=== PATIENT | female | born 1935 | race Caucasian/White ===

== ENCOUNTER 2017-01-05 10:41 | Inpatient (IN) ==
[2017-01-05] MEDS ORDERED: ONDANSETRON 4 MG/2 ML VIAL IV STA ×2 (11:16→12:36)
[2017-01-05] MEDS ORDERED: HYDROmorphone 2 MG/1 ML VIAL IV STA ×3 (11:16→12:29)
[2017-01-05] MEDS ORDERED: HYDROmorphone 2 MG/1 ML VIAL ONE ×2 (11:19→12:37)
[2017-01-05] MEDS ORDERED: ONDANSETRON 4 MG/2 ML VIAL ONE ×2 (11:19→12:39)
--- NOTE | 2017-01-05 11:21 | Emergency Department Note ---
Arrival - Arrival Chief Complaint: Back Stated Complaint: back pain ED Nursing Triage Note: C/O HAVING LOWER BACK PAIN SINCE BUT HAS GOTTEN WORSE SINCE THR., STATES WAS PLACED ON PAIN MEDICATION BY DR. FERNANDEZ., DENIES HAVING PAIN UPON URINATION., DENIES HAVING INCEASE TEMP., STATES THE PAIN RADIATES TO THE HIPS, STATES WHEN SHE TRIES TO STAND UP THE PAIN RADIATES DOWN HER LEG., STATES THE PAIN IS SEVERE Mode of Arrival: Wheelchair Time Seen by Provider: 01/05/17 11:09 - History of Present Illness HPI Narrative: Patient 81-year-old white female presents emergency room with severe back pain. Patient states she has had 3 kyphoplasty's this year already. She denies any specific trauma that she can recall and tells me she had MRI 2 weeks ago that showed no acute fracture but this pain is developed since that MRI. She denies any radicular type symptoms and has not lost her bowel or bladder function. She is scheduled see Dr. Fernandez in 3 days. He has not had any fever, chills and she denies any urinary symptoms. Patient plans also complaining of some substernal chest pain that her daughter was concerned about. She denies any neck shoulder arm discomfort with this and does not have any shortness of breath or diaphoresis. Allergies/Adverse Reactions: Allergies Allergy/AdvReac Type Severity Reaction Status Date / Time tetanus toxoid, adsorbed Allergy Severe Swelling Verified 01/05/17 10:48 of Lip/Tongue/Throat Home Medications: Home Medications Medication Instructions Recorded Confirmed Type Apixaban [Eliquis] 5 mg PO BID 08/08/15 01/05/17 History Metoprolol Succinate Xl [Toprol Xl] 50 mg PO DAILY 08/08/15 01/05/17 History Diltiazem Tab [Cardizem Tab] 30 mg PO TID 01/05/17 01/05/17 History Hydrocodone/Acetaminophen 1 each PO Q6H PRN 01/05/17 01/05/17 History [Hydrocodon-Acetaminoph 7.5-325] fentaNYL [Fentanyl 25 mcg/hr Patch] 1 patch TRANSDERM Q3DAY 01/05/17 01/05/17 History Review of System - Review of System Constitutional: Absent: chills, fever Eyes: Absent: pain, vision change Head/Ears/Nose/Throat: Absent: earache, nasal drainage Respiratory: Absent: cough, respiratory distress, wheezing Cardiovascular: Present: chest pain. Absent: palpitations, orthopnea, edema Gastrointestinal: Absent: abdominal pain, nausea, vomiting, diarrhea Genitourinary female: Absent: dysuria, frequency Musculoskeletal: Present: as per HPI, back pain. Absent: arthralgia, leg pain Skin: Absent: rash, lesions Neurological: Absent: headache, weakness, numbness, paresthesias Psychiatric: Absent: anxiety, depression Hematological/Lymphatic: Absent: easy bleeding, easy bruising Allergic/Immunologic: Absent: facial swelling, urticaria Medical,Surgical,& Family Hx - Medical History Cardio: History of: Cardiac Dysrhythmia (3rd degree heart block), Hypertension, [place], Pacemaker, Cardiovascular Problems (has pacemaker) Neurology: History of: Migraine No history of: Seizures HEENT: History of: Eye Problem (cataracts removed) Rheumatology: History of;: Rheumatoid Arthritis Gastrointestinal: History of: Diverticulitis/ Diverticulosis, GERD, GI Problems (dysphagia) Musculoskeletal: History of: Back/Neck Problems (injection 12-09-14), Osteoporosis (back problems), Musculoskeletal Problems (4 compression problems) Hematology: No history of: Blood Transfusion Reaction Other: No history of: Anesthesia Reactions - Surgical History Cardiac Surgeries: Sugical HX of: Cardiac Catheterization (albation) HEENT Surgeries: Surgical HX of: Eye Surgery (cataracts) Abdominal Surgeries: Surgical HX of: Appendectomy, Colonoscopy, EGD Reproductive Surgeries: Surgical HX of;: Tubal Ligation (1967) Patient denies;: Genitourinary Surgery, Hysterectomy Orthopedic Surgeries: Patient denies;: Orthopedic Surgery - Family History Family History: Reports;: Family Cancer (father-gastric) - Social History Smoking Status: Never smoker Frequency of Alcohol Use: None Type of Drug Use: None Exam Vital Signs: Vital Signs Temperature 98.2 F 01/05/17 10:43 Pulse Rate 72 01/05/17 10:43 Respiratory Rate 16 01/05/17 10:43 Blood Pressure 140/76 01/05/17 10:43 O2 Sat by Pulse Oximetry 96 01/05/17 10:43 - General General appearance: alert, in no apparent distress - Head Head exam: Present: normocephalic - Eye Eye exam: Present: PERRL, EOMI - ENT ENT exam: Present: normal exam - Neck Neck exam: Present: normal inspection, full ROM - Chest Chest inspection: Present: normal inspection - Respiratory Respiratory exam: Present: normal lung sounds bilaterally. Absent: rales, respiratory distress - Cardiovascular Cardiovascular exam: Present: regular rate, normal rhythm, normal heart sounds. Absent: murmur - Abdominal Exam Abdominal exam: Present: soft, normal bowel sounds. Absent: tenderness - Extremities Exam Extremities exam: Present: normal inspection - Back Exam Back exam: Present: tenderness, muscle spasm. Absent: normal inspection - Neurological Exam Neurological exam: Present: alert, oriented X3, CN II-XII intact. Absent: motor sensory deficit - Psychiatric Psychiatric exam: Present: normal affect - Skin Skin exam: Present: warm, dry
[2017-01-05] MEDS ORDERED: ASPIRIN 325 MG TABLET PO STA (11:35)
[2017-01-05 11:44] LABS: Basophils % 0.7 % (0.0-0.8); Eosinophils # 0.2 10*3/uL (0.0-0.87); Eosinophils % 3.4 % (0.00-10.9); Hematocrit 40.9 VOL% (35.7-47.0); Hemoglobin 13.4 GM/DL (12.0-16.0); Immature Granulocytes % 0.5 %; Immature Granulocytes Absolute 0.02 #; Lymphocytes # 1.5 10*3/uL (1.4-4.0); Lymphocytes % 33.2 % (21.3-54.2); Mean Corpuscular HGB Conc 32.8 GM/DL (32-36); Mean Corpuscular Hemoglobin 26 PG (27-34); Mean Corpuscular Volume 80.7 FL (87-102); Monocytes # 0.4 10*3/uL (0.11-0.8); Monocytes % 8.4 % (1.7-12.7); Neutrophils # 2.4 10*3/uL (1.4-7.4); Neutrophils % 53.8 % (38.7-73.9); Platelet Count 124 T/CUMM (130-400); Red Blood Count 5.07 MC/CUMM (3.8-5.5); Red Cell Distribution Width 14.7 % (9.3-17.3); White Blood Count 4.4 T/CUMM (4-12)
[2017-01-05] MEDS ORDERED: ASPIRIN 325 MG TABLET ONE (11:45)
[2017-01-05 12:24] LABS: Albumin 3.5 G/DL (3.4-5.0); Bilirubin,Total 0.4 MG/DL (0.2-1.0); Osmolality,Calculated 278.4 MOS/KG (273-304); Potassium 4.3 MMOL/L (3.5-5.1); Total Protein 6.5 G/DL (6.4-8.3)
--- NOTE | 2017-01-05 12:34 | EKG Report ---
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
--- NOTE | 2017-01-05 12:39 | XRay Report ---
XR lumbar spine AP/LAT Indication: Back pain. Lumbar spine 2 views: Comparison 10/19/2016. In addition to the previously treated compression fractures of L2 and L3, kyphoplasty has now been performed at T11, T12 and L4. Patient is markedly osteoporotic. No acute compression fractures are seen at the untreated levels. Alignment is normal. Calcified atheromatous disease is present. Impression: Multiple levels of treated compression fractures with kyphoplasty. Marked osteoporosis. No acute compression fractures demonstrated. PROCEDURE INTERPRETED AT [facility] DEPARTMENT OF RADIOLOGY Final Report Signed by: Eric Israel M.D.
--- NOTE | 2017-01-05 12:40 | XRay Report ---
XR chest 1V portable Indication: Chest pain. Chest one view: Comparison 09/24/2016. Pacemaker device, mild cardiomegaly, tortuous thoracic aorta and senile scarring of the lungs appear stable. No new infiltrates are shown. Impression: No acute cardiopulmonary disease. Chronic changes as described. PROCEDURE INTERPRETED AT [facility] DEPARTMENT OF RADIOLOGY Final Report Signed by: Eric Israel M.D.
--- NOTE | 2017-01-05 14:26 | Hospitalist History & Physical ---
Assessment and Plan - Time spent with patient Time spent with patient: Greater than 30 minutes (1) Intractable lower back pain Status: Acute Assessment and plan: Ms. 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 Patient will be admitted to the floor with family present to monitor her mental status on narcotics. Will insert a Osman until her pain is controlled for ease of movement. We will start her on Percocets, tramadol, and Dilaudid as needed. Will consult Dr. South from pain management to assist in her pain control until Dr. Maher is back on Saturday. Will restart her home medicines for her heart but will hold Eliquis just in case Dr. Maher wants to do a kyphoplasty next week. Will give patient Lovenox in the meantime. We will continue to monitor the patient's breathing and blood pressure and mental status while on these narcotics while trying to control her pain. We will also try to get her records of her previous MRI and low back x-rays to compare. Dr. Burgess will see and examined patient and further recommendations to follow. Current Visit: Yes (2) Compression fracture Status: Acute Current Visit: Yes (3) Irregular heart rhythm Status: Acute Current Visit: Yes (4) Chronic anticoagulation Status: Acute Current Visit: Yes (5) Pacemaker Status: Acute Current Visit: Yes (6) Radiculopathy of lumbosacral region Status: Acute Current Visit: Yes History of Present Illness Chief complaint: Back pain History of present illness: Ms. 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 Patient states she has had back pain for the last 10 years but has not been that bad until this past . She states she has had multiple compression fractures and Dr. Maher has done 4 kyphoplastys since . Patient states she is scheduled to see him again on Saturday but she states since the pain has become so bad that she cannot stand it anymore. Patient rates her pain at 10/10 upon admission to the ED. After some Dilaudid it decreased to a 6/10. Patient states she did have an MRI approximately 2-3 weeks ago that did not show any new fractures. Patient feels like she is being cut in half when she moves. She states the pain radiates to her hips equally but does not radiate into the legs. She has normal sensation in her legs and feet. She denies any bowel or bladder problems, headaches, chest pain, shortness of breath, abdominal pain, or lower extremity edema. Patient's vital signs are stable and her labs are normal. She takes [place] and fentanyl patch for home given by Dr. Maher. Patient states the [place] is not doing anything for the pain today. 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 Marques. Patient's case was discussed with Dr. Khan the ED physician and Dr. Burgess the admitting hospitalist, and it was agreed patient would be admitted for further evaluation and treatment. Home Medications Medication Instructions Recorded Confirmed Type Apixaban [Eliquis] 5 mg PO BID 08/08/15 01/05/17 History Metoprolol Succinate Xl [Toprol Xl] 50 mg PO DAILY 08/08/15 01/05/17 History Diltiazem Tab [Cardizem Tab] 30 mg PO TID 01/05/17 01/05/17 History Hydrocodone/Acetaminophen 1 each PO Q6H PRN 01/05/17 01/05/17 History [Hydrocodon-Acetaminoph 7.5-325] fentaNYL [Fentanyl 25 mcg/hr Patch] 1 patch TRANSDERM Q3DAY 01/05/17 01/05/17 History Allergies Allergy/AdvReac Type Severity Reaction Status Date / Time tetanus toxoid, adsorbed Allergy Severe Swelling Verified 01/05/17 10:48 of Lip/Tongue/Throat Medical,Surgical,& Family Hx - Medical History Cardio: History of: Cardiac Dysrhythmia (3rd degree heart block), Hypertension, [place], Pacemaker, Cardiovascular Problems (has pacemaker) Neurology: History of: Migraine No history of: Seizures HEENT: History of: Eye Problem (cataracts removed) Rheumatology: History of;: Rheumatoid Arthritis Gastrointestinal: History of: Diverticulitis/ Diverticulosis, GERD, GI Problems (dysphagia) Musculoskeletal: History of: Back/Neck Problems (injection 5--15), Osteoporosis (back problems), Musculoskeletal Problems (4 compression problems) Hematology: No history of: Blood Transfusion Reaction Other: No history of: Anesthesia Reactions - Surgical History Cardiac Surgeries: Sugical HX of: Cardiac Catheterization (albation) HEENT Surgeries: Surgical HX of: Eye Surgery (cataracts) Abdominal Surgeries: Surgical HX of: Appendectomy, Colonoscopy, EGD Reproductive Surgeries: Surgical HX of;: Tubal Ligation (1967) Patient denies;: Genitourinary Surgery, Hysterectomy Orthopedic Surgeries: Patient denies;: Orthopedic Surgery - Family History Family History: Reports;: Family Cancer (father-gastric) - Social History Smoking Status: Never smoker Frequency of Alcohol Use: None Type of Drug Use: None Marital Status: Lives With:: Alone Functional capacity: independent ambulation Review of systems: A complete 10 system review of systems was obtained and pertinent positives and negatives per HPI Exam - Constitutional Vitals: Period Temp Pulse Resp BP Sys/Rich Pulse Ox Last 24 Hr 98.2 F-98.2 F 72-72 16-16 140-140/76-76 96 Exam: Constitutional System: No distress. No tremulousness. Head: Normocephalic, atraumatic. Ears, Nose and Throat System: No evidence of Otitis or Mastoiditis. No epistaxis or discharge Eyes System: Pupils equal, round, and reactive. Extraocular muscles intact. Neck: Supple, without adenopathy, No jugular venous distention. No thyromegaly, neck mass, or prior surgery apparent. Respiratory System: Chest clear to auscultation. Cardiovascular System: Heart with regular rate and rhythm. No murmur. GI System: Abdomen soft, nontender. Normo active bowel sounds present. Musculoskeletal System: limbs with no pedal edema. Full distal pulses. Tenderness in low back paraspinal region down around to bilateral hips Neurological System: No discernable sensory deficit. No aphasia Psychiatric System: Conversation is rational Results - Labs CBC & BMP: 01/05/17 11:35 01/05/17 11:35 Lab Results: I have reviewed the past 24 hour labs - Impressions Atrial pacer and ventricular pacer - Diagnostic Findings Procedure: Chest x-ray: report reviewed by me (No acute process)
[2017-01-05] MEDS ORDERED: diphenhydrAMINE CAP 25 MG CAPSULE PO PRN (14:44)
[2017-01-05] MEDS ORDERED: KETOROLAC 30 MG/1 ML VIAL IV ONE (14:44)
[2017-01-05] MEDS ORDERED: PROMETHAZINE 25 MG/1 ML VIAL IM PRN (14:44)
[2017-01-05] MEDS ORDERED: oxyCODONE/ACETAMINOPHEN 5-325 MG TABLET PO PRN ×2 (14:44)
[2017-01-05] MEDS ORDERED: DOCUSATE SODIUM 100 MG CAPSULE PO PRN (14:44)
[2017-01-05] MEDS ORDERED: guaiFENesin/DM ER 600-30 MG TABLET PO PRN (14:44)
[2017-01-05] MEDS ORDERED: ENOXAPARIN 40 MG/0.4 ML SYRINGE SUBCUT SCH (15:00)
[2017-01-05] MEDS ORDERED: HYDROmorphone 2 MG/1 ML VIAL IV SCH ×2 (15:00)
[2017-01-05] MEDS: KETOROLAC 30 MG/1 ML VIAL IV SCH ×2 (16:17→21:16)
[2017-01-05] MEDS: SODIUM CHLORIDE 0.9% 1,000 ML IV SCH (16:24)
[2017-01-05] MEDS: DILTIAZEM 30 MG TABLET PO SCH ×2 (16:43→21:13)
[2017-01-05] MEDS: METOPROLOL SUCCINATE XL 50 MG TABLET PO SCH (16:44)
[2017-01-05] MEDS: PANTOPRAZOLE 40 MG TABLET PO SCH (16:44)
[2017-01-05] MEDS: ENOXAPARIN 60 MG/0.6 ML SYRINGE SUBCUT SCH (18:59)
[2017-01-05] MEDS: ONDANSETRON 4 MG/2 ML VIAL IV PRN (21:42)
[2017-01-06] MEDS: SODIUM CHLORIDE 0.9% 1,000 ML IV SCH ×2 (02:53→11:19)
[2017-01-06] MEDS: KETOROLAC 30 MG/1 ML VIAL IV SCH ×4 (02:55→21:40)
[2017-01-06] MEDS: ONDANSETRON 4 MG/2 ML VIAL IV PRN ×4 (03:04→21:36)
[2017-01-06] MEDS: ENOXAPARIN 60 MG/0.6 ML SYRINGE SUBCUT SCH ×2 (06:25→18:26)
[2017-01-06] MEDS: HYDROmorphone 2 MG/1 ML VIAL IV PRN ×4 (06:28→21:48)
--- NOTE | 2017-01-06 07:59 | EKG Report ---
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
[2017-01-06] MEDS: DILTIAZEM 30 MG TABLET PO SCH ×3 (09:16→21:34)
[2017-01-06] MEDS: METOPROLOL SUCCINATE XL 50 MG TABLET PO SCH (09:16)
[2017-01-06] MEDS: PANTOPRAZOLE 40 MG TABLET PO SCH (09:17)
--- NOTE | 2017-01-06 11:31 | Hospitalist Progress Note ---
Assessment and Plan - Time spent with patient Time spent with patient: Greater than 30 minutes (1) Chronic low back pain Status: Acute Assessment and plan: Improving with pain medications. Defer to Dr. Lawson. Current Visit: Yes (2) Chronic anticoagulation Status: Acute Assessment and plan: Switch the patient from an oral medications to therapeutic Lovenox. This can be discontinued if any procedures are required. Current Visit: Yes Hospitalist: Subjective Interval history: Stable, no complaints. She states the pain medications are assisting. CT from yesterday has been reviewed no acute findings. Exam - Constitutional Vitals: Period Temp Pulse Resp BP Sys/Rich Pulse Ox Last 24 Hr 97.4 F-98.2 F 60-88 18-18 128-167/60-82 94-100 General appearance: no acute distress - Head Head exam: Present: normocephalic, atraumatic - Eye Eye exam: Present: EOMI Pupils: Present: GOLDEN - ENT ENT exam: Present: normal exam - Neck Neck exam: Present: normal inspection - Respiratory Respiratory exam: Present: clear to auscultation bilaterally. Absent: rhonchi, wheezes - Cardiovascular Cardiovascular exam: Present: regular rate and rhythm. Absent: gallop, rubs, systolic murmur - GI/Abdominal GI/Abdominal exam: Present: normal bowel sounds, soft. Absent: distended, firm , guarding, tenderness, rebound - Extremities Exam Extremities exam: Present: normal inspection. Absent: calf tenderness, edema Results - Labs CBC & BMP: 01/05/17 11:35 01/05/17 11:35 Lab Results: I have reviewed the past 24 hour labs
[2017-01-06] MEDS ORDERED: hydrALAZINE 20 MG/1 ML VIAL IV PRN (11:42)
[2017-01-07] MEDS: SODIUM CHLORIDE 0.9% 1,000 ML IV SCH ×3 (02:34→18:45)
[2017-01-07] MEDS: ONDANSETRON 4 MG/2 ML VIAL IV PRN ×4 (04:05→20:20)
[2017-01-07] MEDS: KETOROLAC 30 MG/1 ML VIAL IV SCH ×4 (04:08→20:20)
[2017-01-07] MEDS: HYDROmorphone 2 MG/1 ML VIAL IV PRN ×3 (04:16→23:20)
[2017-01-07] MEDS: ACETAMINOPHEN 325 MG TABLET PO PRN (06:26)
[2017-01-07] MEDS: ENOXAPARIN 60 MG/0.6 ML SYRINGE SUBCUT SCH ×2 (06:27→18:44)
[2017-01-07] MEDS: DILTIAZEM 30 MG TABLET PO SCH ×3 (09:07→20:20)
[2017-01-07] MEDS: PANTOPRAZOLE 40 MG TABLET PO SCH (09:07)
[2017-01-07] MEDS: METOPROLOL SUCCINATE XL 50 MG TABLET PO SCH (09:08)
--- NOTE | 2017-01-07 12:52 | Pain Management Consult Note ---
Assessment and Plan (1) Compression fracture Problem details: Lumbar compression fracture L1 Status: Acute Assessment and plan: The patient reports 4-5 day history of severe back pain consistent with a lumbar compression fracture. She has had previous fractures at multiple levels and is well aware of the type of pain that goes along with these fractures. The pain is such that it hurts to really move much at all. In regards to her low and mid back she has had T11-T12 L2-L3 and L4 repaired. The pain is at approximately the level of L1. I reviewed her x-rays very carefully and it is apparent to me that there is further superior endplate collapse of L1 when compared to previous x-rays. Will get CT scan to confirm this. And if the CT scan confirms this then will proceed with kyphoplasty probably Saturday of this week. If in fact there is a new fracture then kyphoplasty is medically necessary because the patient cannot care for herself and was independent before this fracture. Current Visit: Yes History of Present Illness Chief complaint: Back pain History of present illness: Ms. Gill is a 81 year old female with severe osteoporosis who is sustained multiple previous lumbar and thoracic compression fractures. She states "I have another fracture". She states that starting 5 days ago she developed severe back pain to the point she can no longer get out of bed or perform any basic activities of daily living. She denies any specific injury but the pain is much worse with movement and is a sharp stabbing aching pain. Home Medications Medication Instructions Recorded Confirmed Type Apixaban [Eliquis] 5 mg PO BID 08/08/15 01/05/17 History Metoprolol Succinate Xl [Toprol Xl] 50 mg PO DAILY 08/08/15 01/05/17 History Diltiazem Tab [Cardizem Tab] 30 mg PO TID 01/05/17 01/05/17 History Hydrocodone/Acetaminophen 1 each PO Q6H PRN 01/05/17 01/05/17 History [Hydrocodon-Acetaminoph 7.5-325] fentaNYL [Fentanyl 25 mcg/hr Patch] 1 patch TRANSDERM Q3DAY 01/05/17 01/05/17 History Allergies Allergy/AdvReac Type Severity Reaction Status Date / Time tetanus toxoid, adsorbed Allergy Severe Swelling Verified 01/05/17 10:48 of Lip/Tongue/Throat Medical,Surgical,& Family Hx - Medical History Cardio: History of: Cardiac Dysrhythmia (3rd degree heart block), Hypertension, [place], Pacemaker, Cardiovascular Problems (has pacemaker) Neurology: History of: Migraine No history of: Seizures HEENT: History of: Eye Problem (cataracts removed) Rheumatology: History of;: Rheumatoid Arthritis Gastrointestinal: History of: Diverticulitis/ Diverticulosis, GERD, GI Problems (dysphagia) Musculoskeletal: History of: Back/Neck Problems (injection 5-21-15), Osteoporosis (back problems), Musculoskeletal Problems (4 compression problems) Hematology: No history of: Blood Transfusion Reaction Other: No history of: Anesthesia Reactions - Surgical History Cardiac Surgeries: Sugical HX of: Cardiac Catheterization (albation) HEENT Surgeries: Surgical HX of: Eye Surgery (cataracts) Abdominal Surgeries: Surgical HX of: Appendectomy, Colonoscopy, EGD Patient denies: Abdominal Surgery Reproductive Surgeries: Surgical HX of;: Tubal Ligation (1968) Patient denies;: Genitourinary Surgery, Hysterectomy Orthopedic Surgeries: Patient denies;: Orthopedic Surgery - Family History Family History: Reports;: Family Cancer (father-gastric) - Social History Smoking Status: Never smoker Frequency of Alcohol Use: None Type of Drug Use: None - Constitutional Constitutional: Present: fatigue, weakness, weight loss - Musculoskeletal Musculoskeletal: Present: arthralgias, back pain, joint swelling, muscle weakness - Neurological Neurological: Present: paresthesias Exam - Constitutional Vitals: Period Temp Pulse Resp BP Sys/Rich Pulse Ox Last 24 Hr 97.2 F-98.3 F 60-60 18-20 132-151/56-81 95-100 General appearance: normal weight - Eye Eye exam: Present: EOMI - ENT Ear exam: Present: intact - Respiratory Respiratory exam: Present: clear to auscultation bilaterally - Cardiovascular Cardiovascular exam: Present: RRR - GI/Abdominal GI/Abdominal exam: Present: normal bowel sounds - Back Exam Back exam: Present: vertebral tenderness - Neurological Exam Neurological exam: Present: alert, oriented X3, abnormal gait, CN II-XII intact - Skin Skin exam: Present: dry Results - Labs CBC & BMP: 01/05/17 11:35 01/05/17 11:35
--- NOTE | 2017-01-07 13:21 | Hospitalist Progress Note ---
Assessment and Plan - Time spent with patient Time spent with patient: Greater than 30 minutes (1) Chronic low back pain Status: Acute Assessment and plan: Improving with pain medications. Defer to Dr. Maher. Current Visit: Yes (2) Chronic anticoagulation Status: Acute Assessment and plan: Switch the patient from an oral medications to therapeutic Lovenox. This can be discontinued if any procedures are required 12 hours prior to planned surgery. Current Visit: Yes Hospitalist: Subjective Interval history: No complaints or overnight events. Reports no constipation. Exam - Constitutional Vitals: Period Temp Pulse Resp BP Sys/Rich Pulse Ox Last 24 Hr 97.2 F-98.3 F 60-60 18-20 132-151/56-81 95-100 General appearance: no acute distress - Head Head exam: Present: normocephalic, atraumatic - Eye Eye exam: Present: EOMI Pupils: Present: GOLDEN - ENT ENT exam: Present: normal exam - Neck Neck exam: Present: normal inspection - Respiratory Respiratory exam: Present: clear to auscultation bilaterally. Absent: rhonchi, wheezes - Cardiovascular Cardiovascular exam: Present: regular rate and rhythm. Absent: gallop, rubs, systolic murmur - GI/Abdominal GI/Abdominal exam: Present: normal bowel sounds, soft. Absent: distended, firm , guarding, tenderness, rebound - Extremities Exam Extremities exam: Present: normal inspection. Absent: calf tenderness, edema Results - Labs CBC & BMP: 01/05/17 11:35 01/05/17 11:35 Lab Results: I have reviewed the past 24 hour labs
[2017-01-07] MEDS ORDERED: HYDROmorphone 2 MG/1 ML VIAL IV ONE (14:15)
--- NOTE | 2017-01-07 16:02 | CT Report ---
CT lumbar spine wo con Indication: Back pain. Previous vertebroplasty at multiple levels. CT LUMBAR SPINE WITHOUT CONTRAST DLP: 614 mGy*cm. One or more of the following dose reduction techniques was used: Automated exposure control, adjustment of the mA and/or kV according the patient size, or use of iterative reconstruction techniques. Comparison: 11/13/2016 Technique: Axial noncontrast CT images of the lumbar spine were obtained. Coronal and sagittal reconstructions were provided. Findings: Since 2 months ago, kyphoplasty has been performed at T12 securing the compression fracture. Additional kyphoplasty at L2, L3 and L4 appear stable. Slight flattening and concave changes of the superior endplate of L1 indicate a new compression fracture since previous examination. Less than 20% loss of vertebral body height noted. No retropulsed fracture fragments. Posterior elements are maintained. L5 vertebral body height is maintained as is S1. Overall disc heights are maintained throughout the lumbar spine. Patient is markedly osteoporotic. Extensive calcified atheromatous disease of the aorta is present. Scattered granulomata are distorted throughout the spleen. Tiny bilateral pleural effusions noted. Impression: Since 2 months ago, new superior endplate compression fracture of L1. Treated T12 compression fracture now present as well. Old treated fractures at L2, L3 and L4 as described. PROCEDURE INTERPRETED AT [facility] DEPARTMENT OF RADIOLOGY Final Report Signed by: Eric Israel M.D.
[2017-01-08] MEDS: KETOROLAC 30 MG/1 ML VIAL IV SCH ×4 (02:57→20:27)
[2017-01-08] MEDS: ONDANSETRON 4 MG/2 ML VIAL IV PRN ×3 (03:00→17:04)
[2017-01-08] MEDS: HYDROmorphone 2 MG/1 ML VIAL IV PRN ×3 (05:57→18:13)
[2017-01-08] MEDS: ENOXAPARIN 60 MG/0.6 ML SYRINGE SUBCUT SCH (05:57)
[2017-01-08] MEDS: METOPROLOL SUCCINATE XL 50 MG TABLET PO SCH (09:17)
[2017-01-08] MEDS: DILTIAZEM 30 MG TABLET PO SCH ×3 (09:17→20:30)
[2017-01-08] MEDS: PANTOPRAZOLE 40 MG TABLET PO SCH (09:17)
--- NOTE | 2017-01-08 13:34 | Hospitalist Progress Note ---
Assessment and Plan - Time spent with patient Time spent with patient: Greater than 30 minutes (1) Chronic low back pain Status: Acute Assessment and plan: L1 fracture. Improving with pain medications. Defer to Dr. Maher. Current Visit: Yes (2) Chronic anticoagulation Status: Acute Assessment and plan: Oral medications held. Patient is currently on Lovenox which the last dose will have to be at least 12 hours prior to any surgery. Current Visit: Yes Hospitalist: Subjective Interval history: No complaints. She reports improved pain. CT performed reveals L1 acute fracture. Exam - Constitutional Vitals: Period Temp Pulse Resp BP Sys/Rich Pulse Ox Last 24 Hr 97.1 F-98.4 F 55-60 18-20 139-188/69-81 94-97 General appearance: no acute distress - Head Head exam: Present: normocephalic, atraumatic - Eye Eye exam: Present: EOMI Pupils: Present: GOLDEN - ENT ENT exam: Present: normal exam - Neck Neck exam: Present: normal inspection - Respiratory Respiratory exam: Present: clear to auscultation bilaterally. Absent: rhonchi, wheezes - Cardiovascular Cardiovascular exam: Present: regular rate and rhythm. Absent: gallop, rubs, systolic murmur - GI/Abdominal GI/Abdominal exam: Present: normal bowel sounds, soft. Absent: distended, firm , guarding, tenderness, rebound - Extremities Exam Extremities exam: Present: normal inspection. Absent: calf tenderness, edema Results - Labs CBC & BMP: 01/05/17 11:35 01/05/17 11:35 Lab Results: I have reviewed the past 24 hour labs
--- NOTE | 2017-01-08 14:49 | Pain Management Progress Note ---
Assessment and Plan (1) Compression fracture Problem details: Lumbar compression fracture L1 Status: Acute Assessment and plan: 01/08/2017. The patient remains with continued back pain with any significant movement. She is unable to get out of bed due to the severity of her pain. CT scan confirms new L1 fracture. Due to the severity of her pain she is now candidate for kyphoplasty of this affected level. I am hopeful that she will be ready to go home either late tomorrow or early the following day. y 01/07/2017. The patient reports 4-5 day history of severe back pain consistent with a lumbar compression fracture. She has had previous fractures at multiple levels and is well aware of the type of pain that goes along with these fractures. The pain is such that it hurts to really move much at all. In regards to her low and mid back she has had T11-T12 L2-L3 and L4 repaired. The pain is at approximately the level of L1. I reviewed her x-rays very carefully and it is apparent to me that there is further superior endplate collapse of L1 when compared to previous x-rays. Will get CT scan to confirm this. And if the CT scan confirms this then will proceed with kyphoplasty probably Saturday of this week. If in fact there is a new fracture then kyphoplasty is medically necessary because the patient cannot care for herself and was independent before this fracture. y Current Visit: Yes Pain - Subjective Interval history: Continued back pain with any movement Exam - Constitutional Vitals: Period Temp Pulse Resp BP Sys/Rich Pulse Ox Last 24 Hr 97.1 F-98.4 F 55-60 18-20 139-188/69-81 94-97 General appearance: normal weight, mild distress - Back Exam Back exam: Present: vertebral tenderness - Neurological Exam Neurological exam: Present: alert, oriented X3 Results - Labs CBC & BMP: 01/05/17 11:35 01/05/17 11:35
[2017-01-08] MEDS: ACETAMINOPHEN 325 MG TABLET PO PRN (14:58)
[2017-01-09] MEDS: ONDANSETRON 4 MG/2 ML VIAL IV PRN ×2 (00:32→20:56)
[2017-01-09] MEDS: HYDROmorphone 2 MG/1 ML VIAL IV PRN ×5 (00:36→20:52)
[2017-01-09] MEDS: KETOROLAC 30 MG/1 ML VIAL IV SCH ×4 (03:24→22:35)
--- NOTE | 2017-01-09 06:21 | EKG Report ---
Stationary ECG Study [facility] Test Date: 01/08/2017 9:29:08 PM Pat Name: NASRIN LOZANO Department: Room: 440 Gender: F Ingot Weigher: SHABNAM : 1935 Requested by: Karel Dawson Order Number: [id number] Reading MD: ROMAN ORDONEZ Intervals [place] Rate: 60 P: 252 MO: 302 QRS: -57 QRSD: 194 T: 101 QT: 513 QTc: 513 Interpretive Statements ELECTRONIC ATRIAL PACEMAKER ELECTRONIC VENTRICULAR PACEMAKER Electronically Signed On 01-09-17 17:11:30 CDT by ROMAN ORDONEZ [email or web address]
--- NOTE | 2017-01-09 12:15 | Hospitalist Progress Note ---
Assessment and Plan - Time spent with patient Time spent with patient: Greater than 30 minutes (1) Chronic low back pain Status: Acute Assessment and plan: L1 fracture. Improving with pain medications. Defer to Dr. Maher. Current Visit: Yes (2) Chronic anticoagulation Status: Acute Assessment and plan: Has history of atrial fibrillation and is on anticoagulation because of that. Oral medications held. Lovenox held for procedure. Current Visit: Yes Hospitalist: Subjective Interval history: Reports pain is well controlled. Would like some relief with the kyphoplasty. Exam - Constitutional Vitals: Period Temp Pulse Resp BP Sys/Rich Pulse Ox Last 24 Hr 97.5 F-988 F 59-62 16-20 119-175/57-81 94-96 General appearance: no acute distress - Head Head exam: Present: normocephalic, atraumatic - Eye Eye exam: Present: EOMI Pupils: Present: GOLDEN - ENT ENT exam: Present: normal exam - Neck Neck exam: Present: normal inspection - Respiratory Respiratory exam: Present: clear to auscultation bilaterally. Absent: rhonchi, wheezes - Cardiovascular Cardiovascular exam: Present: regular rate and rhythm. Absent: gallop, rubs, systolic murmur - GI/Abdominal GI/Abdominal exam: Present: normal bowel sounds, soft. Absent: distended, firm , guarding, tenderness, rebound - Extremities Exam Extremities exam: Present: normal inspection. Absent: calf tenderness, edema Results - Labs CBC & BMP: 01/05/17 11:35 01/05/17 11:35 Lab Results: I have reviewed the past 24 hour labs
[2017-01-09] MEDS ORDERED: TISSUE ADHESIVE 1 EACH APPLICATOR TOP ONE (14:21)
[2017-01-09] MEDS ORDERED: ROPIVACAINE 0.5% 30 ML VIAL ONE (14:21)
[2017-01-09] MEDS ORDERED: PROPOFOL 200 MG/20 ML VIAL IV ONE (14:28)
[2017-01-09] MEDS ORDERED: PROMETHAZINE 25 MG/1 ML VIAL ONE (14:28)
[2017-01-09] MEDS ORDERED: LABETALOL 100 MG/20 ML VIAL IV ONE (14:28)
[2017-01-09] MEDS: DILTIAZEM 30 MG TABLET PO SCH ×3 (15:00→21:00)
--- NOTE | 2017-01-09 15:11 | Operative Note ---
Date of procedure: 01/09/17 Pre-op diagnosis: Lumbar compression fracture Post-op diagnosis: same Procedure: Preoperative diagnoses: #1 lumbar compression fracture Postoperative diagnosis: Same Procedure: Kyphoplasty L1 Anesthesia: MAC Complications: None Findings: The patient tolerated the procedure well, there is excellent religion of vertebral height, the vertebral body held 10 cc of contrast and bone cement. Estimated blood loss: 10 cc History of present illness: The patient has had multiple lumbar and thoracic compression fractures and has responded extremely well to kyphoplasty's in the past. She is incapacitated with her pain at this point and is a candidate for kyphoplasty of the acute fracture of L1. She has severe osteoporosis. Procedure note: The risk benefits and indications of the procedure were explained to the patient including the option to do nothing at all, she understood these and wished to proceed. The patient was placed in the prone position on the fluoroscopy table, her her back was prepped with alcohol and ChloraPrep allowed air dry and sterilely draped. Skin was raised below the pedicles of L1 bilaterally. Stab wound was made with 11 blade scalpel and through the stab wounds were advanced the bone trochars. These were advanced under careful fluoroscopic control until they struck the posterior aspect of the pedicles of L1 bilaterally using oblique approach. Then using a bone mouth are driven down to the pedicles and into the posterior aspect of the elbow one vertebral body under careful fluoroscopic control. AP and lateral views were checked under fluoroscopy. I then advanced the hand twist drill into the body of L1 and then removed it. I then placed the balloon bone tamps into the body of L1, and then injected contrasted fluid under fluoroscopy into the balloons. Each held approximately 5-6 cc of contrast and fluid. These then were removed after the bone cement had been mixed and prepped by an tmd teacher assistant. I then injected the bone cement after adequate set up time into the vertebral body under continuous lateral fluoroscopy. The vertebral body held a total of 10-1/ 2 cc of contrast and bone cement. There is excellent filling and religion of the vertebral body height. Patient tolerated the procedure well, the bone trochars removed intact and the wounds were sterilely dressed after skin glue was placed on the wounds. The patient was taken to recovery in satisfactory condition. Anesthesia: MAC Surgeon / Physician: Rafael Maher Estimated blood loss: minimal Specimens: none sent Condition: stable Disposition: PACU Results - Labs CBC & BMP: 01/05/17 11:35 01/05/17 11:35 Discharge Plan - Discharge Data Condition at Discharge: Stable - Discharge Medications No Action Apixaban [Eliquis] 5 mg PO BID Metoprolol Succinate Xl [Toprol Xl] 50 mg PO DAILY fentaNYL [Fentanyl 25 mcg/hr Patch] 1 patch TRANSDERM Q3DAY Hydrocodone/Acetaminophen [Hydrocodon-Acetaminoph 7.5-325] 1 each PO Q6H PRN PRN Reason: Pain Diltiazem Tab [Cardizem Tab] 30 mg PO TID - Follow Up or Referral - Forms/Instructions
[2017-01-09] MEDS ORDERED: HYDROmorphone 2 MG/1 ML VIAL ONE (15:26)
[2017-01-09] MEDS ORDERED: ONDANSETRON 4 MG/2 ML VIAL ONE (15:26)
--- NOTE | 2017-01-09 15:27 | Anesthesia Post-Op ---
Anesthesia Post OP - Post Ansesthetic Evaluation Patient seen in post op: Yes Resp: within normal limits CV: within normal limits Mental: within normal limits Temp: within normal limits [id number]: within normal limits Nausea and Vomiting: within normal limits Pain: within normal limits
[2017-01-09] MEDS ORDERED: MIDAZOLAM 2 MG/2 ML VIAL ONE (15:28)
[2017-01-09] MEDS ORDERED: fentaNYL 100 MCG/2 ML VIAL ONE (15:28)
--- NOTE | 2017-01-09 15:40 | XRay Report ---
XR spine 1V Indication: Kyphoplasty. Fluoroscopy spine: 3 captured fluoroscopic images labeled as "L1 kypho" are provided. Fluoroscopy time 1 minute 45 seconds. They show positioning of 2 transpedicular injection needles with final image demonstrating methyl methacrylate injection of the vertebral body. Multiple levels of previously treated spine are present as well. Impression: Presumed satisfactory imaging for kyphoplasty. PROCEDURE INTERPRETED AT [facility] DEPARTMENT OF RADIOLOGY Final Report Signed by: Eric Israel M.D.
[2017-01-09] MEDS ORDERED: ONDANSETRON 4 MG/2 ML VIAL IV PRN (15:41)
[2017-01-09] MEDS ORDERED: KETOROLAC 15 MG/1 ML VIAL ONE (15:51)
[2017-01-09] MEDS: LACTATED RINGERS 1,000 ML IV SCH (20:02)
[2017-01-10] MEDS: METOPROLOL SUCCINATE XL 50 MG TABLET PO SCH ×2 (00:38→09:56)
[2017-01-10] MEDS: PANTOPRAZOLE 40 MG TABLET PO SCH ×2 (00:38→09:55)
[2017-01-10] MEDS: ENOXAPARIN 60 MG/0.6 ML SYRINGE SUBCUT SCH ×2 (00:39→07:06)
[2017-01-10] MEDS: LACTATED RINGERS 1,000 ML IV SCH ×4 (00:39→15:29)
[2017-01-10] MEDS: KETOROLAC 30 MG/1 ML VIAL IV SCH ×2 (04:28→09:52)
[2017-01-10] MEDS: ONDANSETRON 4 MG/2 ML VIAL IV PRN ×2 (04:32→11:47)
[2017-01-10] MEDS: DILTIAZEM 30 MG TABLET PO SCH ×2 (09:56→15:35)
[2017-01-10 11:22] VITALS: BP 132/61
--- NOTE | 2017-01-10 12:31 | Pain Management Progress Note ---
Assessment and Plan (1) Compression fracture Problem details: Lumbar compression fracture L1 Status: Acute Assessment and plan: 01/09/2017. Overall she is significantly improved. She is up moving and much more active. The procedure went extremely well yesterday. She should be ready for discharge whenever deemed appropriate by her admitting doctors. She has a follow-up appointment with us. n 01/08/2017. The patient remains with continued back pain with any significant movement. She is unable to get out of bed due to the severity of her pain. CT scan confirms new L1 fracture. Due to the severity of her pain she is now candidate for kyphoplasty of this affected level. I am hopeful that she will be ready to go home either late tomorrow or early the following day. y 01/07/2017. The patient reports 4-5 day history of severe back pain consistent with a lumbar compression fracture. She has had previous fractures at multiple levels and is well aware of the type of pain that goes along with these fractures. The pain is such that it hurts to really move much at all. In regards to her low and mid back she has had T11-T12 L2-L3 and L4 repaired. The pain is at approximately the level of L1. I reviewed her x-rays very carefully and it is apparent to me that there is further superior endplate collapse of L1 when compared to previous x-rays. Will get CT scan to confirm this. And if the CT scan confirms this then will proceed with kyphoplasty probably Saturday of this week. If in fact there is a new fracture then kyphoplasty is medically necessary because the patient cannot care for herself and was independent before this fracture. y Current Visit: Yes Pain - Subjective Interval history: Back pain much better Exam - Constitutional Vitals: Period Temp Pulse Resp BP Sys/Rich Pulse Ox Last 24 Hr 97.1 F-99.7 F 63-88 16-20 105-168/45-95 86-100 Results - Labs CBC & BMP: 01/05/17 11:35 01/05/17 11:35
--- NOTE | 2017-01-10 14:09 | Discharge Summary ---
Hospital Course - Hospital Course Hospital Course: Ms. Gill was admitted for evaluation of severe back pain. While in the ER she had a lumbar x-ray which revealed multiple fractures that have been cemented and a potential fracture in L1. She seen by pain management Dr. Fernandez who ordered a CT scan of the lumbar region which confirmed an L1 endplate fracture. During this time her Eliquis was held and she was bridged on Lovenox therapy. Once an adequate amount of time past, she had a kyphoplasty performed by Dr. Fernandez which was successful and resulted in adequate relief of pain. By discharge she had met maximum benefit of hospitalization I spent 38 minutes coordinating this discharge. - Time spent with patient Time with patient DS: Greater than 30 minutes Diagnosis - Discharge Diagnosis (1) Chronic low back pain Status: Acute (2) Chronic anticoagulation Status: Acute Discharge Plan - Discharge Data Disposition: Disch To Home/Self Care Condition at Discharge: Stable Discharge Diet: advance to your usual diet Activity: resume usual activities as tolerated Hygiene: no restrictions Weight Bearing at Discharge: full weight bearing - Discharge Medications Continue Apixaban [Eliquis] 5 mg PO BID Metoprolol Succinate Xl [Toprol Xl] 50 mg PO DAILY fentaNYL [Fentanyl 25 mcg/hr Patch] 1 patch TRANSDERM Q3DAY Hydrocodone/Acetaminophen [Hydrocodon-Acetaminoph 7.5-325] 1 each PO Q6H PRN PRN Reason: Pain Diltiazem Tab [Cardizem Tab] 30 mg PO TID - Follow Up or Referral - Forms/Instructions Exam - Constitutional Vitals: Period Temp Pulse Resp BP Sys/Rich Pulse Ox Last 24 Hr 97.1 F-99.7 F 63-88 16-20 105-168/45-95 86-100 General appearance: normal weight, no acute distress - Head Head exam: Present: normal inspection, normocephalic, atraumatic - Eye Eye exam: Present: EOMI Pupils: Present: GOLDEN - ENT ENT exam: Present: normal exam - Neck Neck exam: Present: normal inspection - Respiratory Respiratory exam: Present: clear to auscultation bilaterally. Absent: accessory muscle use, prolonged expiratory phase, wheezes - Cardiovascular Cardiovascular exam: Present: regular rate and rhythm. Absent: bradycardia, irregular rhythm, systolic murmur - GI/Abdominal GI/Abdominal exam: Present: normal bowel sounds. Absent: ascites, hypoactive bowel sounds, tenderness - Extremities Exam Extremities exam: Present: normal inspection DS: Provider Date of admission: 01/05/17 14:33 Primary care physician: Manuelito Lee DO Attending physician on admission: Mariella Shrestha MD Consults: 01/05/17 17:36 Consult to Dietitian [CONS] Routine Reason for Dietitian: Other Consult Comment: recent weight loss 01/05/17 19:23 Consult to Physician [CONS] Routine Comment: intractable back pain, pt of Dr. Fernandez Consulting Provider: Rafael Fernandez Consulting Provider Notified: Yes When should Consulting Provider be notified: Now Consult to Specialist Group: Pain Management When should Consulting Provider be notified: Now Person Notified: DR NAVA Date Notified: 01/06/17 Time Notified: 08:09 Consult Notification Comment: ABEL AT OFFICE NOTIFIED ON December AT 910AM-FOR DR FERNANDEZ Discharging clinician: Mariella Shrestha MD Expected date of discharge: 01/10/17
[2017-01-10] MEDS: HYDROmorphone 2 MG/1 ML VIAL IV PRN (15:31)
== END 2017-01-10 15:45 | disposition home or self-care (01) | DRG 517 ==
LOC: N.ED 10:41 → N.EDINP 14:33 → N.4E 15:02
PROVIDERS: ADMIT Internal Medicine; ATTEND Internal Medicine

== ENCOUNTER 2019-03-08 20:28 | Inpatient (IN) ==
[2019-03-08 21:19] LABS: Basophils % 0.4 % (0.0-0.8); Eosinophils # 0.2 10*3/uL (0.0-0.87); Eosinophils % 3.3 % (0.00-10.9); Hematocrit 36.6 VOL% (35.7-47.0); Hemoglobin 11.1 GM/DL (12.0-16.0); Immature Granulocytes % 0.6 %; Immature Granulocytes Absolute 0.04 #; Lymphocytes # 2.9 10*3/uL (1.4-4.0); Mean Corpuscular HGB Conc 30.3 GM/DL (32-36); Mean Corpuscular Volume 86.3 FL (87-102); Mean Platelet Volume 11.5 FL (9.6-12.0); Monocytes % 8.9 % (1.7-12.7); Neutrophils % 46.8 % (38.7-73.9); Platelet Count 141 T/CUMM (130-400); Red Blood Count 4.24 MC/CUMM (3.8-5.5); Red Cell Distribution Width 15.7 % (9.3-17.3); White Blood Count 7.2 T/CUMM (4-12)
[2019-03-08 21:33] LABS: Alanine Aminotransferase 19 U/L (13-56); Albumin 3.6 G/DL (3.4-5.0); Alkaline Phosphatase 52 U/L (45-117); Aspartate Amino Transferase 22 U/L (0-37); Bilirubin,Total < 0.39 MG/DL (0.2-1.0); Blood Urea Nitrogen 32 MG/DL (7-18); Calcium 8.7 MG/DL (8.5-10.1); Glucose 105 MG/DL (74-106); Osmolality,Calculated 285.4 MOS/KG (273-304); Total Protein 6.8 G/DL (6.4-8.3)
[2019-03-08 21:33] LABS: PT Patient Result 10.6 SECS; Partial Thromboplastin Time 26.6 SECS (0-40)
[2019-03-08] MEDS ORDERED: SODIUM CHLORIDE 0.9% 1,000 ML IV STA (21:41)
[2019-03-08] MEDS ORDERED: ACETAMINOPHEN 325 MG TABLET PO PRN (22:37)
[2019-03-08] MEDS ORDERED: ONDANSETRON 4 MG/2 ML VIAL IV PRN (22:37)
[2019-03-09 00:02] LABS: Hemoglobin 9.7 GM/DL (12.0-16.0)
[2019-03-09] MEDS: SODIUM CHLORIDE 0.9% 1,000 ML IV SCH ×3 (04:00→17:11)
[2019-03-09 04:15] LABS: Hematocrit 28.2 VOL% (35.7-47.0); Hemoglobin 8.8 GM/DL (12.0-16.0)
[2019-03-09] MEDS ORDERED: SODIUM CHLORIDE 0.9% 1,000 ML IV PRN (07:15)
[2019-03-09 07:49] LABS: Hematocrit 26.8 VOL% (35.7-47.0); Hemoglobin 8.3 GM/DL (12.0-16.0)
[2019-03-09] MEDS: PANTOPRAZOLE 40 MG VIAL IV SCH (08:23)
[2019-03-09] MEDS: DOCUSATE SODIUM 100 MG CAPSULE PO SCH ×2 (08:23→20:05)
[2019-03-09] MEDS ORDERED: traMADol 50 MG TABLET PO PRN (10:22)
[2019-03-09] MEDS: oxyCODONE/ACETAMINOPHEN 5-325 MG TABLET PO PRN (10:40)
[2019-03-09] MEDS: MULTIVITAMIN (CENTRUM) TABLET PO SCH ×2 (10:41→10:43)
[2019-03-09] MEDS: DILTIAZEM 30 MG TABLET PO SCH ×2 (15:39→20:05)
[2019-03-09 19:43] LABS: Hematocrit 29.1 VOL% (35.7-47.0); Hemoglobin 9.1 GM/DL (12.0-16.0)
[2019-03-10] MEDS: SODIUM CHLORIDE 0.9% 1,000 ML IV SCH ×4 (01:23→11:02)
[2019-03-10 02:00] LABS: Hematocrit 28.5 VOL% (35.7-47.0); Hemoglobin 8.9 GM/DL (12.0-16.0)
[2019-03-10] MEDS: DILTIAZEM 30 MG TABLET PO SCH (08:49)
[2019-03-10] MEDS: PANTOPRAZOLE 40 MG VIAL IV SCH (08:49)
[2019-03-10] MEDS: DOCUSATE SODIUM 100 MG CAPSULE PO SCH (08:49)
[2019-03-10] MEDS: MULTIVITAMIN (CENTRUM) TABLET PO SCH (08:49)
[2019-03-10] MEDS ORDERED: CALCIUM (CARBONATE) 500 MG TABLET PO SCH (09:00)
[2019-03-10] MEDS ORDERED: METOPROLOL SUCCINATE XL 100 MG TABLET PO SCH (09:00)
[2019-03-10] MEDS: oxyCODONE/ACETAMINOPHEN 5-325 MG TABLET PO PRN (09:50)
[2019-03-10 15:45] VITALS: BP 144/71
== END 2019-03-10 16:35 | disposition home or self-care (01) | DRG 813 ==
LOC: N.ED 20:28 → N.EDINP 20:28 → N.4E 23:31
PROVIDERS: ADMIT Family Medicine; ATTEND Family Medicine

== ENCOUNTER 2019-12-14 06:28 | Inpatient (IN) ==
[2019-12-14] MEDS ORDERED: ONDANSETRON 4 MG/2 ML VIAL IV PRN (06:50)
[2019-12-14] MEDS ORDERED: SODIUM CHLORIDE 0.9% 1,000 ML IV STA (06:50)
[2019-12-14] MEDS ORDERED: PANTOPRAZOLE 40 MG VIAL IV STA (06:50)
[2019-12-14 07:11] LABS: Basophils % 0.2 % (0.0-0.8); Eosinophils # 0.1 10*3/uL (0.0-0.87); Eosinophils % 1.4 % (0.00-10.9); Hematocrit 35.8 VOL% (35.7-47.0); Hemoglobin 10.9 GM/DL (12.0-16.0); Immature Granulocytes % 0.6 %; Immature Granulocytes Absolute 0.05 #; Lymphocytes # 1.5 10*3/uL (1.4-4.0); Lymphocytes % 17.6 % (21.3-54.2); Mean Corpuscular HGB Conc 30.4 GM/DL (32-36); Mean Corpuscular Volume 83.4 FL (87-102); Mean Platelet Volume 10.8 FL (9.6-12.0); Monocytes % 7.1 % (1.7-12.7); Neutrophils % 73.1 % (38.7-73.9); Platelet Count 166 T/CUMM (130-400); Red Blood Count 4.29 MC/CUMM (3.8-5.5); Red Cell Distribution Width 16.4 % (9.3-17.3); White Blood Count 8.3 T/CUMM (4-12)
[2019-12-14 07:24] LABS: PT Patient Result 10.9 SECS (9.8-11.9); Partial Thromboplastin Time 28.8 SECS (23.9-33.8)
[2019-12-14 07:50] LABS: Albumin 3.5 G/DL (3.4-5.0); Bilirubin,Total 0.5 MG/DL (0.2-1.0); Calcium 9.4 MG/DL (8.5-10.1); Osmolality,Calculated 273.1 MOS/KG (273-304); Total Protein 7.5 G/DL (6.4-8.3)
[2019-12-14] MEDS ORDERED: SODIUM CHLORIDE 0.9% 1,000 ML IV SCH (10:00)
[2019-12-14] MEDS ORDERED: ACETAMINOPHEN 325 MG TABLET PO PRN (10:00)
[2019-12-14 10:27] LABS: Hematocrit 31.6 VOL% (35.7-47.0); Hemoglobin 9.7 GM/DL (12.0-16.0)
[2019-12-14] MEDS: SODIUM CHLORIDE 0.9% 1,000 ML IV SCH ×2 (11:20→23:37)
[2019-12-14] MEDS ORDERED: traMADol 50 MG TABLET PO PRN (11:25)
[2019-12-14 11:41] LABS: Hematocrit 28.9 VOL% (35.7-47.0); Hemoglobin 8.8 GM/DL (12.0-16.0)
[2019-12-14] MEDS: PANTOPRAZOLE 40 MG TABLET PO SCH (13:41)
[2019-12-14] MEDS: DOCUSATE SODIUM 100 MG CAPSULE PO SCH (13:41)
[2019-12-14] MEDS: DILTIAZEM 30 MG TABLET PO SCH (16:24)
[2019-12-14 16:37] LABS: Hematocrit 28.4 VOL% (35.7-47.0); Hemoglobin 8.7 GM/DL (12.0-16.0)
[2019-12-14] MEDS: ONDANSETRON 4 MG/2 ML VIAL IV PRN (16:54)
[2019-12-15] MEDS: DOCUSATE SODIUM 100 MG CAPSULE PO SCH ×2 (00:15→11:01)
[2019-12-15] MEDS: DILTIAZEM 30 MG TABLET PO SCH ×2 (00:15→11:01)
[2019-12-15 05:25] LABS: Basophils % 0.3 % (0.0-0.8); Eosinophils # 0.2 10*3/uL (0.0-0.87); Hematocrit 28.4 VOL% (35.7-47.0); Hemoglobin 8.5 GM/DL (12.0-16.0); Immature Granulocytes % 0.6 %; Immature Granulocytes Absolute 0.04 #; Lymphocytes # 1.8 10*3/uL (1.4-4.0); Lymphocytes % 24.7 % (21.3-54.2); Mean Corpuscular HGB Conc 29.9 GM/DL (32-36); Mean Platelet Volume 11.8 FL (9.6-12.0); Monocytes % 8.2 % (1.7-12.7); Neutrophils % 63.2 % (38.7-73.9); Platelet Count 146 T/CUMM (130-400); Red Blood Count 3.38 MC/CUMM (3.8-5.5); Red Cell Distribution Width 16.3 % (9.3-17.3); White Blood Count 7.2 T/CUMM (4-12)
[2019-12-15 05:51] LABS: Calcium 8.6 MG/DL (8.5-10.1); Osmolality,Calculated 275.7 MOS/KG (273-304)
[2019-12-15] MEDS: ONDANSETRON 4 MG/2 ML VIAL IV PRN (08:09)
[2019-12-15] MEDS ORDERED: METOPROLOL SUCCINATE XL 100 MG TABLET PO SCH (09:00)
[2019-12-15] MEDS: PANTOPRAZOLE 40 MG TABLET PO SCH (10:42)
[2019-12-15 11:57] VITALS: BP 123/53
== END 2019-12-15 14:12 | disposition home or self-care (01) | DRG 378 ==
LOC: N.ED 06:28 → N.EDINP 08:00 → N.3E 08:44
PROVIDERS: ADMIT Family Medicine; ATTEND Family Medicine

== ENCOUNTER 2019-12-21 11:15 | Observation (INO) ==
[2019-12-21] MEDS ORDERED: SODIUM CHLORIDE 0.9% 1,000 ML IV STA ×2 (11:21→12:55)
[2019-12-21 11:58] LABS: Basophils % 0.5 % (0.0-0.8); Eosinophils # 0.1 10*3/uL (0.0-0.87); Eosinophils % 1.4 % (0.00-10.9); Hematocrit 29.9 VOL% (35.7-47.0); Immature Granulocytes % 0.5 %; Immature Granulocytes Absolute 0.03 #; Lymphocytes # 1.8 10*3/uL (1.4-4.0); Lymphocytes % 28.8 % (21.3-54.2); Mean Corpuscular HGB Conc 30.1 GM/DL (32-36); Mean Corpuscular Volume 82.8 FL (87-102); Mean Platelet Volume 11.1 FL (9.6-12.0); Monocytes % 7.5 % (1.7-12.7); Neutrophils % 61.3 % (38.7-73.9); Platelet Count 225 T/CUMM (130-400); Red Blood Count 3.61 MC/CUMM (3.8-5.5); Red Cell Distribution Width 16.1 % (9.3-17.3); White Blood Count 6.3 T/CUMM (4-12)
[2019-12-21 12:09] LABS: PT Patient Result 11.1 SECS (9.8-11.9); Partial Thromboplastin Time 29.8 SECS (23.9-33.8)
[2019-12-21 12:20] LABS: Albumin 3.4 G/DL (3.4-5.0); Bilirubin,Total 0.4 MG/DL (0.2-1.0); Calcium 8.6 MG/DL (8.5-10.1); Osmolality,Calculated 275.8 MOS/KG (273-304); Total Protein 6.7 G/DL (6.4-8.3)
[2019-12-21] MEDS ORDERED: ACETAMINOPHEN 325 MG TABLET PO PRN (12:56)
[2019-12-21] MEDS: SODIUM CHLORIDE 0.9% 1,000 ML IV SCH ×2 (14:37→22:40)
[2019-12-21 16:30] LABS: Apearance,Urine CLEAR (Clear); Bilirubin,Urine Negative (Negative); Blood, Urine Negative (Negative); Glucose,Urine (UA) Negative (Negative); Ketones,Urine Negative (Negative); Nitrite,Urine Negative (Negative); Protein,Urine Negative; Squamous Epithelial Cell,Urine Occasional /HPF (0-10); Urine Color Yellow (Yellow); Urine Specific Gravity 1.039 (1.001-1.035); Urine Urobilinogen < 2.0 EU/DL (0.2-1.0); WBC,Urine 1 /HPF (0-6)
[2019-12-21] MEDS ORDERED: oxyCODONE/ACETAMINOPHEN 5-325 MG TABLET PO PRN (18:37)
[2019-12-21] MEDS: DOCUSATE SODIUM 100 MG CAPSULE PO SCH (20:58)
[2019-12-21] MEDS: oxyCODONE/ACETAMINOPHEN 5-325 MG TABLET PO PRN (20:58)
[2019-12-22] MEDS: ONDANSETRON 4 MG/2 ML VIAL IV PRN (04:57)
[2019-12-22] MEDS: oxyCODONE/ACETAMINOPHEN 5-325 MG TABLET PO PRN ×3 (04:57→20:55)
[2019-12-22] MEDS: SODIUM CHLORIDE 0.9% 1,000 ML IV SCH ×3 (07:15→23:45)
[2019-12-22] MEDS: LIDOCAINE 5% PATCH TRANSDERM SCH (08:16)
[2019-12-22] MEDS: DOCUSATE SODIUM 100 MG CAPSULE PO SCH ×2 (08:16→20:55)
[2019-12-22] MEDS: PANTOPRAZOLE 40 MG TABLET PO SCH (08:16)
[2019-12-22] MEDS: METOPROLOL SUCCINATE XL 100 MG TABLET PO SCH (12:48)
[2019-12-23] MEDS: oxyCODONE/ACETAMINOPHEN 5-325 MG TABLET PO PRN (05:49)
[2019-12-23] MEDS: ONDANSETRON 4 MG/2 ML VIAL IV PRN (05:49)
[2019-12-23] MEDS: SODIUM CHLORIDE 0.9% 1,000 ML IV SCH (07:35)
[2019-12-23 07:45] LABS: Basophils % 0.6 % (0.0-0.8); Eosinophils # 0.2 10*3/uL (0.0-0.87); Eosinophils % 3.9 % (0.00-10.9); Hematocrit 24.8 VOL% (35.7-47.0); Hemoglobin 7.3 GM/DL (12.0-16.0); Immature Granulocytes % 0.4 %; Immature Granulocytes Absolute 0.02 #; Lymphocytes % 20.4 % (21.3-54.2); Mean Corpuscular HGB Conc 29.4 GM/DL (32-36); Mean Corpuscular Volume 83.8 FL (87-102); Mean Platelet Volume 10.8 FL (9.6-12.0); Neutrophils % 65.7 % (38.7-73.9); Platelet Count 173 T/CUMM (130-400); Red Blood Count 2.96 MC/CUMM (3.8-5.5); Red Cell Distribution Width 16.2 % (9.3-17.3); White Blood Count 4.7 T/CUMM (4-12)
[2019-12-23 07:57] LABS: Calcium 7.1 MG/DL (8.5-10.1)
[2019-12-23 08:08] LABS: Folate 21.7 NG/ML (5.4-24.0)
[2019-12-23] MEDS ORDERED: MAGNESIUM SULF RIDER 2 GM in PREMIX 1 EACH IV ONE (08:10)
[2019-12-23] MEDS: METOPROLOL SUCCINATE XL 100 MG TABLET PO SCH (08:59)
[2019-12-23] MEDS: PANTOPRAZOLE 40 MG TABLET PO SCH (08:59)
[2019-12-23] MEDS: DOCUSATE SODIUM 100 MG CAPSULE PO SCH (08:59)
[2019-12-23] MEDS: LIDOCAINE 5% PATCH TRANSDERM SCH (09:00)
[2019-12-23 11:43] VITALS: BP 146/70
== END 2019-12-23 12:44 | disposition home or self-care (01) ==
LOC: N.ED 11:15 → N.EDINP 11:15 → N.TELES 14:02
PROVIDERS: ADMIT Family Medicine; ATTEND Family Medicine

== ENCOUNTER 2019-12-23 19:48 | Observation (INO) ==
[2019-12-23] MEDS ORDERED: SODIUM CHLORIDE 0.9% 1,000 ML IV PRN (20:09)
[2019-12-23 21:05] LABS: Basophils % 0.5 % (0.0-0.8); Eosinophils # 0.2 10*3/uL (0.0-0.87); Eosinophils % 3.5 % (0.00-10.9); Hematocrit 26.1 VOL% (35.7-47.0); Hemoglobin 7.6 GM/DL (12.0-16.0); Immature Granulocytes % 0.3 %; Immature Granulocytes Absolute 0.02 #; Lymphocytes # 1.7 10*3/uL (1.4-4.0); Lymphocytes % 26.6 % (21.3-54.2); Mean Corpuscular HGB Conc 29.1 GM/DL (32-36); Mean Corpuscular Volume 84.5 FL (87-102); Mean Platelet Volume 10.5 FL (9.6-12.0); Monocytes % 8.1 % (1.7-12.7); Platelet Count 194 T/CUMM (130-400); Red Blood Count 3.09 MC/CUMM (3.8-5.5); Red Cell Distribution Width 16.4 % (9.3-17.3); White Blood Count 6.6 T/CUMM (4-12)
[2019-12-23] MEDS ORDERED: ACETAMINOPHEN 325 MG TABLET PO PRN (22:07)
[2019-12-23] MEDS ORDERED: traMADol 50 MG TABLET PO PRN (22:07)
[2019-12-24] MEDS: ONDANSETRON 4 MG/2 ML VIAL IV PRN ×2 (01:00→09:28)
[2019-12-24] MEDS ORDERED: oxyCODONE/ACETAMINOPHEN 5-325 MG TABLET PO PRN (06:28)
[2019-12-24 07:45] LABS: Basophils % 0.5 % (0.0-0.8); Eosinophils # 0.1 10*3/uL (0.0-0.87); Eosinophils % 1.9 % (0.00-10.9); Hematocrit 34.1 VOL% (35.7-47.0); Hemoglobin 10.4 GM/DL (12.0-16.0); Immature Granulocytes % 0.6 %; Immature Granulocytes Absolute 0.04 #; Lymphocytes # 1.2 10*3/uL (1.4-4.0); Lymphocytes % 19.8 % (21.3-54.2); Mean Corpuscular HGB Conc 30.5 GM/DL (32-36); Mean Corpuscular Volume 84.8 FL (87-102); Monocytes % 7.3 % (1.7-12.7); Neutrophils % 69.9 % (38.7-73.9); Platelet Count 192 T/CUMM (130-400); Red Blood Count 4.02 MC/CUMM (3.8-5.5); Red Cell Distribution Width 16.1 % (9.3-17.3); White Blood Count 6.2 T/CUMM (4-12)
[2019-12-24 07:59] LABS: Calcium 7.9 MG/DL (8.5-10.1); Osmolality,Calculated 275.7 MOS/KG (273-304)
[2019-12-24] MEDS ORDERED: DOCUSATE SODIUM 100 MG CAPSULE PO SCH (09:00)
[2019-12-24] MEDS ORDERED: MULTIVITAMIN (CENTRUM) TABLET PO SCH (09:00)
[2019-12-24] MEDS ORDERED: DILTIAZEM 30 MG TABLET PO SCH (09:00)
[2019-12-24] MEDS ORDERED: PANTOPRAZOLE 40 MG TABLET PO SCH (09:00)
[2019-12-24] MEDS ORDERED: METOPROLOL SUCCINATE XL 100 MG TABLET PO SCH (09:00)
[2019-12-24 11:46] VITALS: BP 191/86
== END 2019-12-24 13:57 | disposition home or self-care (01) ==
LOC: N.TELEN
PROVIDERS: ADMIT Family Medicine; ATTEND Family Medicine

== ENCOUNTER 2020-05-24 02:49 | Observation (INO) ==
[2020-05-24 03:51] LABS: Basophils % 0.2 % (0.0-0.8); Eosinophils # 0.1 10*3/uL (0.0-0.87); Eosinophils % 2.5 % (0.00-10.9); Hematocrit 32.2 VOL% (35.7-47.0); Hemoglobin 10.2 GM/DL (12.0-16.0); Immature Granulocytes % 0.4 %; Immature Granulocytes Absolute 0.02 #; Lymphocytes # 1.3 10*3/uL (1.4-4.0); Mean Corpuscular HGB Conc 31.7 GM/DL (32-36); Mean Corpuscular Volume 75.6 FL (87-102); Mean Platelet Volume 9.6 FL (9.6-12.0); Monocytes % 9.6 % (1.7-12.7); Neutrophils % 61.3 % (38.7-73.9); Platelet Count 124 T/CUMM (130-400); Red Blood Count 4.26 MC/CUMM (3.8-5.5); Red Cell Distribution Width 19.7 % (9.3-17.3); White Blood Count 4.8 T/CUMM (4-12)
[2020-05-24 04:02] LABS: INR 1.1; PT Patient Result 11.5 SECS (9.8-11.9)
[2020-05-24 04:09] LABS: Hypochromasia Slight
[2020-05-24 04:10] LABS: Microcytosis 1+; Platelet Estimate Normal
[2020-05-24 04:16] LABS: Albumin 3.2 G/DL (3.4-5.0); Bilirubin,Total 0.6 MG/DL (0.2-1.0); Calcium 8.6 MG/DL (8.5-10.1); Osmolality,Calculated 283.4 MOS/KG (273-304); Total Protein 6.3 G/DL (6.4-8.3)
[2020-05-24 04:36] VITALS: BP 162/93
[2020-05-24 04:48] LABS: Bilirubin,Urine Negative (Negative); Blood, Urine NEGATIVE (Negative); Glucose,Urine (UA) Negative (Negative); Ketones,Urine Negative (Negative); Mucus,Urine Occasional /LPF (Occasional); Nitrite,Urine Negative (Negative); Protein,Urine Negative; RBC,Urine <1 /HPF (0-4); Squamous Epithelial Cell,Urine Occasional /HPF (0-10); Urine Appearance Clear (Clear); Urine Color Yellow (Yellow); Urine Specific Gravity 1.005 (1.001-1.035); Urine Urobilinogen < 2.0 EU/DL (0.2-1.0); WBC,Urine <1 /HPF (0-6)
[2020-05-24] MEDS ORDERED: MAGNESIUM SULF RIDER 4 GM in PREMIX 1 EACH IV PRN (05:22)
[2020-05-24] MEDS ORDERED: MAGNESIUM SULF RIDER 2 GM in PREMIX 1 EACH IV PRN (05:22)
[2020-05-24] MEDS ORDERED: POTASSIUM CHLORIDE 20 MEQ TABLET PO PRN ×2 (05:22→09:47)
[2020-05-24] MEDS ORDERED: SODIUM CHLORIDE 0.9% 1,000 ML IV SCH (05:22)
[2020-05-24] MEDS ORDERED: ONDANSETRON 4 MG/2 ML VIAL IV PRN (05:22)
[2020-05-24] MEDS: MORPHINE 4 MG/1 ML VIAL IV PRN ×2 (06:22→10:12)
[2020-05-24] MEDS ORDERED: FUROSEMIDE 20 MG TABLET PO PRN (09:34)
[2020-05-24] MEDS ORDERED: METOPROLOL SUCCINATE XL 50 MG TABLET PO SCH (10:00)
[2020-05-24 13:00] LABS: Basophils % 0.4 % (0.0-0.8); Eosinophils # 0.1 10*3/uL (0.0-0.87); Hematocrit 32.2 VOL% (35.7-47.0); Hemoglobin 10.1 GM/DL (12.0-16.0); Immature Granulocytes % 0.8 %; Immature Granulocytes Absolute 0.04 #; Lymphocytes # 1.7 10*3/uL (1.4-4.0); Lymphocytes % 34.8 % (21.3-54.2); Mean Corpuscular HGB Conc 31.4 GM/DL (32-36); Mean Corpuscular Volume 76.1 FL (87-102); Mean Platelet Volume 10.8 FL (9.6-12.0); Monocytes % 9.7 % (1.7-12.7); Neutrophils % 51.3 % (38.7-73.9); Platelet Count 114 T/CUMM (130-400); Red Blood Count 4.23 MC/CUMM (3.8-5.5); Red Cell Distribution Width 19.8 % (9.3-17.3); White Blood Count 4.7 T/CUMM (4-12)
[2020-05-24] MEDS ORDERED: OXYCODONE ACETAMINOPHEN PO SCH (14:00)
[2020-05-25] MEDS ORDERED: CALCIUM (CARBONATE) 500 MG TABLET PO SCH (09:00)
[2020-05-25] MEDS ORDERED: PANTOPRAZOLE 40 MG TABLET PO SCH (09:00)
== END 2020-05-24 15:10 | disposition home or self-care (01) ==
LOC: N.ED 02:49 → N.EDINP 02:49 → N.CC 05:19
PROVIDERS: ADMIT Internal Medicine Interventional Cardiology; ATTEND Internal Medicine Interventional Cardiology

== ENCOUNTER 2022-05-09 06:35 | Observation (INO) ==
[2022-05-09] MEDS ORDERED: SODIUM CHLORIDE 0.9% 500 ML IV STA (06:54)
[2022-05-09] MEDS ORDERED: ONDANSETRON 4 MG/2 ML VIAL IV STA ×2 (06:54→09:09)
[2022-05-09] MEDS ORDERED: HYDROmorphone 1 MG/1 ML SYRINGE IV STA (06:54)
[2022-05-09 07:39] LABS: Basophils % 0.2 % (0.0-0.8); Eosinophils % 0.1 % (0.00-10.9); Hematocrit 44.6 VOL% (35.7-47.0); Hemoglobin 14.1 GM/DL (12.0-16.0); Immature Granulocytes % 0.5 %; Immature Granulocytes Absolute 0.06 #; Lymphocytes # 0.9 10*3/uL (1.4-4.0); Lymphocytes % 7.2 % (21.3-54.2); Mean Corpuscular HGB Conc 31.6 GM/DL (32-36); Mean Corpuscular Volume 83.7 FL (87-102); Mean Platelet Volume 10.9 FL (9.6-12.0); Monocytes # 0.6 10*3/uL (0.11-0.8); Monocytes % 4.8 % (1.7-12.7); Neutrophils % 87.2 % (38.7-73.9); Platelet Count 135 T/CUMM (130-400); Red Blood Count 5.33 MC/CUMM (3.8-5.5); Red Cell Distribution Width 16.6 % (9.3-17.3); White Blood Count 13.1 T/CUMM (4-12)
[2022-05-09 07:45] LABS: Alanine Aminotransferase 24 U/L (13-56); Alkaline Phosphatase 73 U/L (45-117); Aspartate Amino Transferase 24 U/L (0-37); Blood Urea Nitrogen 27 MG/DL (7-18); Calcium 9.1 MG/DL (8.5-10.1); Carbon Dioxide 24 MMOL/L (21-32); Chloride 104 MMOL/L (98-107); Glucose 180 MG/DL (74-106); Osmolality,Calculated 284.7 MOS/KG (273-304); Sodium 138 MMOL/L (136-145); Total Protein 7.4 G/DL (6.4-8.2)
[2022-05-09 08:50] LABS: Bacteria,Urine Occasional /HPF (Few); Bilirubin,Urine Negative (Negative); Blood, Urine Moderate mg/dL (Negative); Glucose,Urine (UA) 150 mg/dL (Negative); Ketones,Urine Negative (Negative); Mucus,Urine Occasional /LPF (Occasional); Nitrite,Urine Negative (Negative); Protein,Urine 30 mg/dL (Negative); RBC,Urine 6 /HPF (0-4); Squamous Epithelial Cell,Urine Occasional /HPF (0-10); Urine Appearance Slightly Hazy (Clear); Urine Color Yellow (Yellow); Urine Specific Gravity 1.014 (1.001-1.035); Urine Urobilinogen < 2.0 eU/dL (<2.0)
[2022-05-09] MEDS ORDERED: cefTRIAXone 1,000 MG in SODIUM CHLORIDE 0.9% 100 ML IV STA (09:07)
[2022-05-09] MEDS: SODIUM CHLORIDE 0.9% 1,000 ML IV SCH ×2 (11:20→20:25)
[2022-05-09] MEDS: ACETAMINOPHEN 325 MG TABLET PO PRN ×2 (12:07→20:24)
[2022-05-09] MEDS ORDERED: FUROSEMIDE 20 MG TABLET PO PRN (15:04)
[2022-05-09] MEDS: ONDANSETRON 4 MG/2 ML VIAL IV PRN (16:49)
[2022-05-09] MEDS: oxyCODONE/ACETAMINOPHEN 5-325 MG TABLET PO PRN (16:49)
[2022-05-09] MEDS: APIXABAN 2.5 MG TABLET PO SCH (20:24)
[2022-05-09] MEDS: DOCUSATE SODIUM 100 MG CAPSULE PO SCH (20:24)
[2022-05-10] MEDS: oxyCODONE/ACETAMINOPHEN 5-325 MG TABLET PO PRN (04:32)
[2022-05-10] MEDS: ONDANSETRON 4 MG/2 ML VIAL IV PRN ×2 (04:33→11:30)
[2022-05-10 05:13] LABS: Basophils % 0.2 % (0.0-0.8); Eosinophils % 0.3 % (0.00-10.9); Hematocrit 37.3 VOL% (35.7-47.0); Hemoglobin 11.4 GM/DL (12.0-16.0); Immature Granulocytes % 0.5 %; Immature Granulocytes Absolute 0.03 #; Lymphocytes # 1.6 10*3/uL (1.4-4.0); Mean Corpuscular HGB Conc 30.6 GM/DL (32-36); Mean Platelet Volume 11.4 FL (9.6-12.0); Monocytes # 0.6 10*3/uL (0.11-0.8); Monocytes % 8.9 % (1.7-12.7); Neutrophils % 65.1 % (38.7-73.9); Platelet Count 101 T/CUMM (130-400); Red Blood Count 4.39 MC/CUMM (3.8-5.5); Red Cell Distribution Width 16.5 % (9.3-17.3); White Blood Count 6.5 T/CUMM (4-12)
[2022-05-10 05:26] LABS: Calcium 8.1 MG/DL (8.5-10.1); Osmolality,Calculated 285.1 MOS/KG (273-304); Potassium 3.7 MMOL/L (3.5-5.1)
[2022-05-10 07:45] VITALS: BP 143/69
[2022-05-10] MEDS ORDERED: ASPIRIN EC 81 MG TABLET PO SCH (09:00)
[2022-05-10] MEDS ORDERED: ONDANSETRON ODT 4 MG TABLET PO SCH (09:00)
[2022-05-10] MEDS ORDERED: amLODIPine 2.5 MG TABLET PO SCH (09:00)
[2022-05-10] MEDS ORDERED: cefTRIAXone 1,000 MG in SODIUM CHLORIDE 0.9% 100 ML IV SCH (09:00)
[2022-05-10] MEDS ORDERED: CHOLECALCIFEROL 1,000 UNIT TABLET PO SCH (09:00)
[2022-05-10] MEDS ORDERED: PANTOPRAZOLE 40 MG TABLET PO SCH (09:00)
[2022-05-10] MEDS ORDERED: CALCIUM (CARBONATE) 500 MG TABLET PO SCH (09:00)
[2022-05-10] MEDS ORDERED: METOPROLOL SUCCINATE XL 50 MG TABLET PO SCH (09:00)
[2022-05-10] MEDS: SODIUM CHLORIDE 0.9% 1,000 ML IV SCH (10:15)
[2022-05-10] MEDS: DOCUSATE SODIUM 100 MG CAPSULE PO SCH (10:15)
[2022-05-10] MEDS: APIXABAN 2.5 MG TABLET PO SCH (10:16)
== END 2022-05-10 13:15 | disposition home or self-care (01) ==
LOC: N.ED 06:35 → N.EDINP 06:35 → N.2W 10:50
PROVIDERS: ADMIT Family Medicine; ATTEND Family Medicine